=== PATIENT | male | born 1990 | race Caucasian/White ===

== ENCOUNTER → 2016-08-06 | Outpatient (CLI) | payer OTHER ==
[~2016-08-06] MED LIST: ASPI81TA28 PO; MULTTAB58 PO; MYCO500T4 PO; OYST500T47 PO; TACR5CAP PO
[2016-08-06 12:30] LABS: BASO % 0.2 %; BASO ABS # 0.01 K/uL (0-0.2); COMPLETE YES; EOS % 1.8 %; HEMATOCRIT 39.2 % (42-52); IG% 0.2 %; LYMPH % 26.8 %; LYMPH ABS # 1.74 K/uL (1.2-3.4); MEAN CELL VOLUME 90.1 fL (80-100); MEAN CORPUSCULAR HEMOGLOBIN 30.6 pg (25-34); MEAN CORPUSCULAR HGB CONC 33.9 g/dl (32-36); MONO % 7.7 %; NEUT % 63.3 %; PLATELET COUNT 212 K/uL (130-400); RED BLOOD COUNT 4.35 M/uL (4.7-6.1); WHITE BLOOD COUNT 6.49 K/uL (4.8-10.8)
[2016-08-06 12:44] LABS: URINE APPEARANCE CLEAR (CLEAR); URINE BILIRUBIN NEG (NEG); URINE COLOR YELLOW; URINE EPITHELIAL CELL AUTO 0-5 /lpf (0-5); URINE NITRITE NEG (NEG); URINE PH 5.5 (4.5-7.5); URINE SPECIFIC GRAVITY 1.027 (1.000-1.030); UROBILINOGEN NEG (NEG)
[2016-08-06 12:54] LABS: MANUAL MICROSCOPIC REQUIRED? NO; REVIEW REQ? NO
[2016-08-06 13:18] LABS: ALT/SGPT 26 U/L (12-78); AST/SGOT 14 U/L (15-37); BLOOD UREA NITROGEN 13 mg/dl (7-18); CALCIUM 8.6 mg/dl (8.5-10.1); CARBON DIOXIDE 27 mmol/L (21-32); CHLORIDE 108 mmol/L (98-107); GLUCOSE 90 mg/dl (70-99); SODIUM 143 mmol/L (136-145)
[2016-08-06 13:21] LABS: ALB/GLOB RATIO 1.1 (0.9-2); ALKALINE PHOSPHATASE 73 U/L (45-117)
[2016-08-06 14:44] LABS: URINE PROTIEN/CREAT RATIO 0.1 (0-0.2); URINE TOTAL PROTEIN 17.2 mg/dl (0-11.9)
[2016-08-08 03:43] LABS: FK506 TACROLIMUS HIGHLY SENS 7.4 MCG/L (5-20)
== END | disposition home or self-care (01) ==
LOC: C.LAB1850 09:55
PROVIDERS: ATTEND Internal Medicine Nephrology
DX: Q87.81 Alport syndrome (principal); N18.6 End stage renal disease; Z94.0 Kidney transplant status